=== PATIENT | female | born 1940 | race Caucasian/White ===

== ENCOUNTER 2023-03-30 21:47 | Emergency (ER) | payer OTHER, MEDICAID ==
[~2023-03-30] VITALS: Ht 152.4 cm; Wt 54.4 kg
[2023-03-30 21:59] VITALS: BP 161/84; PULSE 70; RESP 16; TEMP 97.2; O2SAT 97
[2023-03-30 22:10] VITALS: BP 148/63; PULSE 67; RESP 16; TEMP 97.2; O2SAT 97
== END 2023-03-31 03:15 | disposition home or self-care (01) ==
LOC: MED 21:47
DX: R00.2 Palpitations (principal); E11.9 Type 2 diabetes mellitus without complications; I10 Essential (primary) hypertension; E03.9 Hypothyroidism, unspecified; Z79.899 Other long term (current) drug therapy; Z79.4 Long term (current) use of insulin
CPT/HCPCS: 93005; 99283